=== PATIENT | female | born 1980 | race Caucasian/White ===

== ENCOUNTER 2023-09-05 08:41 | Outpatient (CLI) | payer OTHER ==
[2023-09-05 12:50] LABS: ALBUMIN 4.6 g/dL (3.2-5.5); ALBUMIN/GLOBULIN RATIO 1.6 (1.0-2.2); BILIRUBIN,TOTAL 1.5 mg/dL (0.2-1.0); CALCIUM 9.5 mg/dL (8.5-10.3); CREATININE 0.9 mg/dL (0.6-1.3); TOTAL PROTEIN 7.5 g/dL (6.4-8.9)
[2023-09-05 13:10] LABS: BASOPHILS % (AUTO) 0.6 %; EOSINOPHILS # (AUTO) 0.4 10^3/uL (0.0-0.7); EOSINOPHILS % (AUTO) 5.1 %; HCT - HEMATOCRIT 40.2 % (37.0-47.0); LYMPHOCYTES # (AUTO) 1.6 10^3/uL (1.5-3.5); LYMPHOCYTES % (AUTO) 23.1 %; MEAN CORPUSCULAR HEMOGLOBIN 28.8 pg (27.0-31.0); MEAN CORPUSCULAR HGB CONC 32.3 g/dL (32.0-36.0); MEAN CORPUSCULAR VOLUME 89.1 fL (81.0-99.0); MEAN PLATELET VOLUME 10.8 fL (7.9-10.8); MONOCYTES # (AUTO) 0.6 10^3/uL (0.0-1.0); MONOCYTES % (AUTO) 7.9 %; NEUTROPHILS # (AUTO) 4.4 10^3/uL (1.5-6.6); NEUTROPHILS % (AUTO) 62.9 %; PLT - PLATELET COUNT 255 10^3/uL (130-450); RED BLOOD COUNT 4.51 10^6/uL (4.20-5.40); RED CELL DISTRIBUTION WIDTH 13.4 % (12.0-15.0); WHITE BLOOD COUNT 6.9 x10^3/uL (4.8-10.8)
== END 2023-09-05 08:42 | disposition home or self-care (01) ==
LOC: LAB.N 08:41
PROVIDERS: ATTEND Obstetrics & Gynecology
DX: Z01.812 Encounter for preprocedural laboratory examination (principal); Z30.2 Encounter for sterilization
CPT/HCPCS: 36415; 80053; 85025

== ENCOUNTER 2023-09-06 06:11 | Day surgery (SDC) | payer OTHER ==
[2023-09-06 06:36] LABS: HCG UR QUAL NEGATIVE
[2023-09-06] MEDS ORDERED: LACTATED RINGERS 1,000 ML IV ONE ×2 (06:48→09:42)
--- NOTE | 2023-09-06 07:22 | ANESTHESIA ---
Pre-Anesthesia VS, & Labs - Diagnosis desires sterilization - Procedure laparoscopic bilateral salpingectomy Vital Signs: Temp Pulse Resp BP Pulse Ox O2 Flow Rate 36.5 C 74 14 108/77 98 09/06/23 06:34 09/06/23 06:34 09/06/23 06:34 09/06/23 06:34 09/06/23 06:34 Height: 5 ft 3 in Weight (kg): 79.9 kg Body Mass Index: 31.1 BMI Classification: Obese - NPO >8 hours - Is Patient ?: No - Lab Results Lab results reviewed: Yes Home Medications and Allergies Home Medications: Ambulatory Orders Atorvastatin [Lipitor] 10 mg PO DAILY 08/28/23 Cetirizine [ZyrTEC] 10 mg PO DAILY 08/28/23 lisinopriL [Zestril] 5 mg PO DAILY 08/28/23 traZODone [Desyrel] 50 mg PO HS 08/28/23 Atorvastatin [Lipitor] 10 mg PO DAILY 08/28/23 Cetirizine [ZyrTEC] 10 mg PO DAILY 08/28/23 lisinopriL [Zestril] 5 mg PO DAILY 08/28/23 traZODone [Desyrel] 50 mg PO HS 08/28/23 Allergies/Adverse Reactions: Allergies Allergy/AdvReac Type Severity Reaction Status Date / Time No Known Drug Allergies Allergy Verified 08/28/23 15:47 Anes History & Medical History - Anesthetic History Family history of Anesthesia Complications: Denies Family history of Malignant Hyperthermia: Denies - Medical History Cardiovascular: reports: Hypertension, High cholesterol Pulmonary: reports: None Gastrointestinal: reports: None Urinary: reports: None Neuro: reports: None Musculoskeletal: reports: None Endocrine/Autoimmune: reports: None Skin: reports: None Smoking Status: Never smoker Psychosocial: reports: Alcohol (4 drinks per week) History of Cancer?: No - Surgical History Gynecologic: reports: section Exam General: Alert, Oriented x3, Cooperative, No acute distress Dental: WNL Mouth Openin Fingerbreadth Neck Mobility: Normal Mallampati classification: II Thyromental Distance: 4-6 cm Mental/Cognitive Status: Alert/Oriented X3, Normal for patient Plan Anesthesia Type: General Consent for Procedure(s) Verified and Reviewed: Yes Code Status: Attempt Resuscitation ASA classification: 2-Mild systemic disease Is this case an emergency?: No
[2023-09-06] MEDS ORDERED: fentaNYL 100 MCG/2 ML VIAL IVP PRN (07:25)
[2023-09-06] MEDS ORDERED: MORPHINE 2 MG/ML CARPUJECT IVP PRN (07:25)
[2023-09-06] MEDS ORDERED: ONDANSETRON 4 MG/2 ML VIAL IVP PRN (07:25)
[2023-09-06] MEDS ORDERED: NALOXONE 0.4 MG/ML VIAL IVP PRN (07:25)
[2023-09-06] MEDS ORDERED: HYDROmorphone 0.5 MG/0.5 ML SYRINGE IVP PRN (07:25)
[2023-09-06] MEDS ORDERED: ATROPINE ABBOJECT 1 MG/10 ML SYRINGE IVP PRN (07:25)
[2023-09-06] MEDS ORDERED: PROPOFOL 200 MG/20 ML VIAL IVP ONE (07:27)
[2023-09-06] MEDS ORDERED: ROCURONIUM 50 MG/5 ML VIAL ONE (07:27)
[2023-09-06] MEDS ORDERED: MIDAZOLAM 2 MG/2 ML VIAL ONE (07:28)
[2023-09-06] MEDS ORDERED: LACTATED RINGERS 1,000 ML IV SCH (08:00)
[2023-09-06] MEDS ORDERED: LIDOCAINE 1%-EPI 1:100000 20 ML MDV ONE (08:23)
[2023-09-06] MEDS ORDERED: ONDANSETRON 4 MG/2 ML VIAL ONE (08:57)
[2023-09-06] MEDS ORDERED: DEXAMETHASONE 4 MG/ML VIAL ONE (08:57)
[2023-09-06] MEDS ORDERED: HYDROmorphone 1 MG/ML CARPUJECT ONE (09:01)
[2023-09-06] MEDS ORDERED: LIDOCAINE 1%-EPI 1:100000 20 ML MDV SUBQ ONE (09:04)
[2023-09-06] MEDS ORDERED: SUGAMMADEX 200 MG/2 ML VIAL IVP ONE (09:34)
[2023-09-06] MEDS ORDERED: KETOROLAC 15 MG/ML VIAL IVP STA (09:46)
[2023-09-06] MEDS ORDERED: KETOROLAC 15 MG/ML VIAL ONE (09:50)
[2023-09-06] MEDS ORDERED: oxyCODONE 5 MG TABLET PO PRN (10:10)
[2023-09-06 10:12] VITALS: O2SAT 100
[2023-09-06] MEDS ORDERED: oxyCODONE 5 MG TABLET ONE (10:25)
[2023-09-06 10:40] VITALS: BP 136/89
--- NOTE | 2023-09-06 13:01 | ANESTHESIA POST OP EVALUATION ---
Anesthesia Post Eval - Post Anesthesia Eval Vitals: Last Vital Signs Temp 36.6 C 09/06/23 10:12 Pulse 73 09/06/23 10:33 Resp 16 09/06/23 10:33 BP 136/89 H 09/06/23 10:33 Pulse Ox 100 09/06/23 10:33 O2 Flow Rate CV Function Including HR & BP: Stable Pain Control: Satisfactory Nausea & Vomiting: Negative Mental Status: Baseline Respiratory Status: Airway Patent Hydration Status: Satisfactory Anesthesia Complications: None
--- NOTE | 2023-09-06 13:11 | OPERATIVE REPORT ---
Operative Report - General Procedure Date: 09/06/23 - Other Other Information/Narrative: OPERATIVE NOTE Pre-operative diagnosis: 1. satisfied parity Procedure: laparoscopic tubal ligation - salpingectomy Post-operative diagnosis: same as above though partial salpingectomy on the R 2'2 adhesions of tube to R ovary and R pelvic side wall. Surgeon: Nirmal Welder Experimental: Fredo -- essential for retraction and visualization Anesthesia: General Findings: Omental adhesions infra umbilical - possible small hernia, though not palpable externally trocar was inserted superior to these adhesions adhesions of R fallopian tube to R ovary as well as to R pelvic side wall. normal ovaries b/l normal appearing uterus normal tubes prior to removal Complications: None apparent EBL: minimal UOP: none - voided prior to entry into the OR Specimen: L tube (untagged, in 3 segments) and portion of R tube (tagged) sent in same specimen Disposition: Stable, to PACU Procedure in detail: After risks benefits and alternatives, as well as indication for procedure and anticipated post-operative recovery course was discussed with the patient informed consent was obtained and patient was taken to the operating theater where general anesthesia was administered without difficulty. Pt was prepared and draped in normal sterile fashion. Sponge stick placed in vagina for uterine manipulation Prior to skin incision surgical time out was performed, all persons in the operating theater participated in time out and agreed. Infraumbilical skin incision made with scalpel. Direct visualization was utilized to insert 5mm port. Peritoneum insufflated. Pelvis inspected, no nota ble adhesions. 5mm port placed in the right and left lower quadrants. Atraumatic grasper utilized to reveal aforementioned findings. Ligasure used to remove L tube without difficulty, we then turned our attention to the R tube, which was adhesed to the R pelvic side wall, and the R ovary. Surgical decision made to remove the proximal isthmic portion of the R fallopian tube in order to obtain sterilization without causing undue harm. This was done without difficulty. Hemostasis achieved. Reinspected pelvis, all hemostatic. Pt taken out of trendelenberg position, insufflation released from abdomen. Skin closed with 4.0 monocryl. Skin hemostatic, local anesthesia placed around incisions incisions dressed with bandaids x3 Injected with 3.3cc of lidocaine with epi at each site. Pt tolerated procedure well. All counts correct. Pt to PACU in stable condition.
== END 2023-09-06 06:12 | disposition home or self-care (01) ==
LOC: SDS 06:11
PROVIDERS: ATTEND Obstetrics & Gynecology
PROC: 0UB74ZZ Excision of Bilateral Fallopian Tubes, Percutaneous Endoscopic Approach (ICD-10-PCS; principal; 2023-09-06 08:15)
DX: Z30.2 Encounter for sterilization (principal); E66.9 Obesity, unspecified; I10 Essential (primary) hypertension; Z68.31 Body mass index [BMI] 31.0-31.9, adult
CPT/HCPCS: 58661; 81025; A9270; J1170; J7120